=== PATIENT | female | born 1995 | race Hispanic/Latino ===

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

== ENCOUNTER 2017-01-21 01:05 | Inpatient (IN) | payer MEDICAID, OTHER ==
[2017-01-21 01:32] VITALS: BMI 24.6
[2017-01-21] MEDS ORDERED: Ondansetron HCl/PF 4 MG/2 ML Vial IVP PRN ×2 (02:29→05:24)
[2017-01-21] MEDS ORDERED: Promethazine HCl 25 MG/ML VIAL IM PRN ×2 (02:29→05:24)
[2017-01-21] MEDS ORDERED: Acetaminophen 500 MG TAB PO PRN (02:29)
[2017-01-21] MEDS ORDERED: Lactated Ringer's 1,000 ML IV SCH (02:30)
[2017-01-21] MEDS ORDERED: Carboprost 250 MCG/ML AMP IM PRN (02:33)
[2017-01-21] MEDS ORDERED: LR / Pitocin 40 units/1000 ml 1,000 ML IV PRN (02:33)
[2017-01-21] MEDS ORDERED: Misoprostol 200 MCG TAB PR PRN (02:33)
[2017-01-21] MEDS ORDERED: Lidocaine 1% (PF) 30 ML VIAL SC PRN (02:33)
[2017-01-21] MEDS ORDERED: Ibuprofen 800 MG TAB PO PRN (02:33)
[2017-01-21 04:22] LABS: Hematocrit 30.3 % (36.0-47.0); Mean Platelet Volume 8.7 fL (7.4-10.4); Red Blood Cell (RBC) Count 3.71 mill/uL (4.00-5.20); White Blood Cell (WBC) Count 10.8 thou/uL (4.8-10.8)
[2017-01-21] MEDS ORDERED: Fentanyl 4 mcg/Marc 0.1% Cadd 100 ML ONE (04:43)
[2017-01-21] MEDS ORDERED: Acetaminophen 325 MG TAB PO PRN (05:24)
[2017-01-21] MEDS ORDERED: diphenhydrAMINE 50 MG/ML VIAL IVP PRN (05:24)
[2017-01-21] MEDS ORDERED: Lactated Ringer's 500 ML IV PRN (05:24)
[2017-01-21] MEDS ORDERED: ePHEDrine/0.9% NaCl/PF SYRINGE 50 mg/10 ml SLOW IVP PRN (05:24)
[2017-01-21] MEDS ORDERED: Eucerin (Mineral Oil/Petrolatum,White) 30 gm Jar TOP PRN (05:24)
[2017-01-21] MEDS ORDERED: Naloxone HCl 0.4 mg/ml Vial IVP PRN ×2 (05:24)
[2017-01-21] MEDS ORDERED: Fentanyl 4mcg/Marcaine 0.1% Cassette 100 ML EPIDURAL SCH (05:30)
[2017-01-21] MEDS ORDERED: Communication Order-Pharmacy FS SCH (05:30)
[2017-01-21] MEDS ORDERED: Calcium Carbonate 500 MG ChewTAB PO PRN (06:36)
[2017-01-21] MEDS ORDERED: LR 500 ML/Oxytocin 10 units 500 ML ONE (06:37)
--- NOTE | 2017-01-21 06:39 | PDOC.LDPN ---
Labor & Delivery Progress Note - Subjective Subjective: comfortable - Objective Vital signs reviewed and normal: yes General: NAD Uterine fundus: atonic Dilation: 6 Effacement: 90% Station: -1 FHT: category 1 [place] contractions every: 13 min Other exam findings: baseline 130's, no decels, mod variability - Assessment (1) Current Visit: Yes Status: Acute Comment: at 39.3 by LMP/13.6 sono here with ctx. 1. Maternal hx: IUGR with last , last Hadlock 37% 2. Labor progression: has stayed the same at 6/90/-1 for two checks, ctx spaced out, will start pitocin for augmentation. Cat 1 strip. Continue routine care for . (2) History of prior with IUGR Code(s): Z87.59 - PERSONAL HISTORY OF COMP OF PREG, CHLDBRTH AND THE PUERP Current Visit: Yes Status: Acute Comment: Last Hadlock 37%. Plan: continue plan of care
[2017-01-21] MEDS ORDERED: LR 500 ML/Oxytocin 10 units 500 ML IV SCH (06:45)
--- NOTE | 2017-01-21 08:52 | PDOC.LDPN ---
Labor & Delivery Progress Note - Subjective Subjective: comfortable, vaginal pressure, loss of fluid - Objective Vital signs reviewed and normal: yes General: NAD, breathing through contractions Uterine fundus: non tender SVE: 8:45 Dilation: 7 Effacement: 100% Station: 0 FHT: category 1, variability present [place] contractions every: 5, inconsistent Other exam findings: SROM - Assessment (1) Current Visit: Yes Status: Acute Qualifiers: Weeks of gestation: 39 weeks Qualified Code(s): Z3A.39 - 39 weeks gestation of Comment: at 39.4 by LMP/13.6 sono here with ctx. 1. Maternal hx: IUGR with last , last Hadlock 37% 2. Labor progression: Progressed at current check to 7/100/0 and had SROM. Pitocin @6. Epidural in place. Feeling pressure but pain controlled. Cat 1 strip. -Will continue pitocine. Ctx every 5 minutes but not consistent. May increase pitocin. Continue routine care for . Plan: pitocin for augmentation
[2017-01-21] MEDS ORDERED: Bupivacaine 0.25% HCL 30 ML VIAL ONE (11:11)
[2017-01-21] MEDS ORDERED: Bisacodyl 10 MG SUPP PR PRN (11:58)
[2017-01-21] MEDS ORDERED: Adacel (T-DAP) 0.5 ML VIAL IM ONE (11:58)
[2017-01-21] MEDS ORDERED: Benzocaine/Menthol 20-0.5% 60 ML CAN TOP PRN (11:58)
[2017-01-21] MEDS ORDERED: Milk Of Magnesia 30 ML UDCUP PO PRN (11:58)
[2017-01-21] MEDS ORDERED: Varicella virus, LIVE 0.5 ML VIAL SC ONE (11:58)
[2017-01-21] MEDS ORDERED: diphenhydrAMINE 25 MG CAP PO PRN (11:58)
[2017-01-21] MEDS: Ferrous Sulfate 325 MG TAB PO SCH (17:24)
--- NOTE | 2017-01-21 20:38 | DN-2 ---
DELIVERING PHYSICIAN: 1. Dr. Alberto Rosa. 2. Dr. Chadd Henderson. ATTENDING: Dr. Jazmin Duron. PROCEDURE: Spontaneous vaginal delivery. ANESTHESIA: Epidural. ESTIMATED BLOOD LOSS: 300 mL. PREOPERATIVE DIAGNOSES: 1. Term intrauterine in labor. 2. History of intrauterine growth resection. 3. Anemia of . POSTOPERATIVE DIAGNOSES: 1. Term intrauterine , delivered. 2. Bilateral perilabial first degree laceration, hemostatic. INDICATIONS: A 21-year-old female G2, now P1-0-0-1, presents in active labor. DELIVERY NOTE: This is a 21-year-old female G2, no2 P2-0-0-2 at 39.3 weeks who delivered a viable female at 12:16 on 01/21/2017. Following an uneventful antepartum course, a vigorous female was delivered over an intact perineum in the occipitoanterior position, anterior shoulder and then remainder of the body delivered. No nuchal cord. The terminal meconium was visualized. The head was held down and mouth and nares were bulb suctioned. Cord clamped and cut and cord blood collected. Placenta delivered intact with 3-vessel cord noted. Also, noted placenta with a peripherally inserted cord. Fundal massage was performed and the fundus was firm. The cervix and vagina were inspected and found to have bilateral perilabial hemostatic first degree lacerations, not requiring repair with suture. The infant went to nursery in good condition for routine care. Apgars were 8 and 9 at 1 and 5 minutes respectively. The patient tolerated delivery well and went to after routine recovery care. GIANNA
[2017-01-21] MEDS: Docusate (Surfak) 240 MG CAP PO SCH (21:00)
[2017-01-21] MEDS ORDERED: Lanolin Ointment 7 GM TUBE TOP PRN (22:58)
[2017-01-21 23:32] VITALS: TEMP 98.3
--- NOTE | 2017-01-22 01:05 | PDOC.OPDEL ---
OB Operative/Delivery Note Delivery Dr/Surgeon: Carole/Oliverio Procedure/Post Delivery Dx: spontaneous vaginal delivery Weeks gestation: 39 Anesthesia: epidural - Findings A Sex: female (at 1216 pm) - Additional Findings/Plan Placenta delivered: spontaneous Repaired Obstetrical Laceration: none (sm bilateral labial-hemostatic) Estimated blood loss: 300 ml Compilations/Other Findings: I was present for and supervised Frieda Rosa/Beatriz perform without complication. See their dictation for complete details.
[2017-01-22] MEDS: Docusate (Surfak) 240 MG CAP PO SCH (08:23)
[2017-01-22] MEDS: Ferrous Sulfate 325 MG TAB PO SCH (08:28)
[2017-01-22] MEDS ORDERED: Prenatal Vitamin 1 TAB PO SCH (09:00)
--- NOTE | 2017-01-22 09:18 | PDOC.PP ---
Post Progress Note Post Day #: 1 Subjective: CARIDAD overnight, pt ambulating w/o assist. Pt has voided and endorses flatus. Pt has not yet had a BM. Pain controlled w PO ibuprofen. Lochia is period amount, no clots. PO intake tolerated: yes Flatus: yes Ambulation: yes Vital Signs (12 hours) Temp Pulse Resp 01/22/17 07:50 98.3 F 75 18 01/22/17 04:00 98.3 F 75 18 01/22/17 00:00 98.3 F 82 18 Weight Weight 55.338 kg - Physical Examination General: NAD Cardiovascular: RRR Respiratory: clear to auscultation bilaterally Abdominal: + bowel sounds, lochia (period amount), no distention, appropriately TTP Neurological: no gross focal deficits Psychiatric: A&Ox3, normal affect Result Diagrams: 01/21/17 03:50 Additional Labs: Post Labs Blood Type O POSITIVE 01/21/17 03:50 Hep Bs Antigen Non-Reactive S/CO (NonReactive) 01/21/17 03:50 (1) Vaginal delivery Code(s): O80 - ENCOUNTER FOR FULL-TERM UNCOMPLICATED DELIVERY Status: Acute Comment: Post- day 1, pain controlled on PO medication. Pt ambulating, tolerating PO, voiding, and passing flatus. Minimal lochia. Pt likely d/c later today pending infant bilirubin and routine screening. (2) Anemia Code(s): D64.9 - ANEMIA, UNSPECIFIED Status: Acute Comment: Cont. w/ ferrous sulfate and colace <Alberto Rosa - Last Filed: 01/22/17 09:25> Vital Signs (12 hours) Temp Pulse Resp 01/22/17 07:50 98.3 F 75 18 01/22/17 04:00 98.3 F 75 18 01/22/17 00:00 98.3 F 82 18 Weight Weight 55.338 kg Result Diagrams: 01/21/17 03:50 Additional Labs: Post Labs Blood Type O POSITIVE 01/21/17 03:50 Hep Bs Antigen Non-Reactive S/CO (NonReactive) 01/21/17 03:50 <Jazmin Duron - Last Filed: 01/22/17 09:43> Attending Addendum - Attending Addendum I personally evaluated the patient and discussed the management with Dr. Rosa I agree with the History, Examination, Assessment and Plan documented above with any addition or exceptions noted below. ppd#1 s/p - recovering well. Stable for d/c <Jazmin Duron - Last Filed: 01/22/17 09:43>
[2017-01-22] MEDS ORDERED: Ibuprofen 800 MG TAB PO PRN (09:36)
[2017-01-22 12:09] VITALS: BP 112/64
[2017-01-22] MEDS ORDERED: Docusate 100 MG CAP PO SCH (21:00)
== END 2017-01-22 16:15 | disposition home or self-care (01) | DRG 775 ==
LOC: L&D/OP 01:05 → L&D 03:05 → 3SE 15:39
PROVIDERS: ADMIT Family Medicine; ATTEND Family Medicine
PROC: 10E0XZZ Delivery of Products of Conception, External Approach (ICD-10-PCS; principal; 2017-01-21)
DX: O99.02 Anemia complicating childbirth (principal); D64.9 Anemia, unspecified; Z3A.39 39 weeks gestation of pregnancy; Z37.0 Single live birth; O70.0 First degree perineal laceration during delivery; Z87.59 Personal history of other complications of pregnancy, childbirth and the puerperium
CPT/HCPCS: 51702; 85027; 86780; 87340; 99282; J2001; J2405; J7120; S0020

== ENCOUNTER 2017-12-27 04:11 | Emergency (ER) | payer MEDICAID, SELFPAY ==
[2017-12-27] MEDS ORDERED: Ondansetron PF 4 MG/2 ML Vial ONE (04:46)
[2017-12-27] MEDS ORDERED: Morphine 4 MG/ML VIAL ONE (04:46)
[2017-12-27 05:02] LABS: #Basophils 0.1 thou/uL (0.0-0.2); #Eosinphils 0.1 thou/uL (0.0-0.7); #Lymphocytes 3.3 thou/uL (1.20-3.40); #Monocytes 0.5 thou/uL (0.11-0.59); #Neutrophils 3.1 thou/uL (1.40-6.50); %Basophils 0.9 % (0.0-1.0); %Eosinophils 1.9 % (0.0-10.0); %Lymphocytes 46.4 % (28.0-48.0); %Monocytes 7.5 % (0.0-4.0); %Neutrophils 43.3 % (31.0-61.0); Hemoglobin 14.5 g/dL (12.0-16.0); Mean Corpuscular HGB CONC 32.4 g/dL (32.0-36.0); Mean Corpuscular Hemoglobin 28.5 pg (25.0-35.0); Mean Corpuscular Volume 87.9 fL (78.0-98.0); Platelet Count 263 thou/uL (130-400); RBC Distribution Width 12.2 % (11.5-14.5); White Blood Cell (WBC) Count 7.1 thou/uL (4.8-10.8)
[2017-12-27 05:24] LABS: ALT (SGPT) 11 U/L (8-55); AST (SGOT) 28 U/L (5-34); Albumin 4.6 g/dL (3.5-5.0); Alkaline Phosphatase 64 U/L (40-150); Anion Gap 17 mmol/L (10-20); BUN (Urea Nitrogen) 15 mg/dL (7.0-18.7); Bilirubin, Total 0.6 mg/dL (0.2-1.2); Calc. Creatinine Clearance 0 mL/min (70-130); Calcium 9.5 mg/dL (7.8-10.44); Carbon Dioxide 19 mmol/L (22-29); Chloride 105 mmol/L (98-107); Estimated GFR-MDRD 72; Globulin 3.5 g/dL (2.4-3.5); Glucose 109 mg/dL (70-105); Lipase 22 U/L (8-78); Potassium 4.7 mmol/L (3.5-5.1); Protein, Total 8.1 g/dL (6.0-8.3); Sodium 136 mmol/L (136-145)
[2017-12-27 05:34] LABS: Bilirubin Negative (Negative); Blood, Urine Negative (Negative); Clarity CLEAR (Clear); Glucose, Urine (Dipstick) Negative (Negative); Leukocyte Negative (Negative); Nitrite Negative (Negative); Protein, Urine (Dipstick) Negative (Neg-Trace); Specific Gravity, Urine 1.019 (1.002-1.036); pH, Urine 6.5 (5.0-9.0)
[2017-12-27 05:37] LABS: Pregnancy Test - Urine (BHCG) Negative (Negative); Pregu Control Background? CLEAR/WHITE (CLR/WHITE); Pregu Control Bar Appear? YES (CONTROL BAR); Specific Gravity 1.019 (1.002-1.036)
--- NOTE | 2017-12-27 07:03 | ULT ---
RIGHT UPPER QUADRANT ULTRASOUND: INDICATION: Epigastric tube. Left upper quadrant abdominal pain. FINDINGS: The liver measured 15.2 cm. No focal hepatic lesion is evident. The visualized gallbladder was norm al appearing. No sonographic Israel's sign is reported. Common bile duct measured 2.3 mm. Visualiz ed pancreas is unremarkable. The right kidney measured 8.9 x 3.7 x 3.9 cm. IMPRESSION: No sonographic abnormality within the right upper quadrant. POS: BH
== END 2017-12-27 06:12 | disposition home or self-care (01) ==
LOC: ERS 04:11
DX: R10.11 Right upper quadrant pain (principal)
CPT/HCPCS: 36415; 76705; 80053; 81003; 81025; 83690; 85025; 96374; J2270; J2405

== ENCOUNTER 2019-09-07 19:29 | Day surgery (SDC) | payer OTHER ==
[2019-09-07 20:04] VITALS: BP 102/60; TEMP 98.6; BMI 26.2
[2019-09-07] MEDS ORDERED: hydrALAZINE 20 MG/ML VIAL SLOW IVP PRN (21:19)
--- NOTE | 2019-09-07 21:19 | PDOC.FPRHP ---
- Allergies/Adverse Reactions Allergies Allergy/AdvReac Type Severity Reaction Status Date / Time No Known Allergies Allergy Verified 04/27/19 13:20 - Home Medications Medication Instructions Recorded Confirmed Type Pnv No.95/Ferrous Fum/Folic AC 1 tablet PO DAILY 11/02/16 09/07/19 History [ Tablet] Ferrous Sulfate [Feosol] 325 mg PO BID-WM #60 tab 01/22/17 09/07/19 Rx - History PMHx: PSHx: FHx: Social: - Vital signs BP: [] HR: [] RR: [] Tmax: [] Pox: []% on [] Wt: [] FMR H&P: Upper Level - Plan Date/Time: 09/07/192118 I, [], have evaluated this patient and agree with findings/plan as outlined by general internist resident. Pertinent changes/additions are listed here.
--- NOTE | 2019-09-08 01:36 | PDOC.LDHP ---
Labor and Delivery H&P Chief complaint: contractions, abdominal pain HPI: 23yo @ 37.4 wks JUAN (EDC 09/24/2019) who presents for evaluation of contractions. She states that the contractions started this morning and went away, then in the last hour she was having contractions every 5-6 minutes. Due date: 09/24/19 Allergies/Adverse Reactions: Allergies Allergy/AdvReac Type Severity Reaction Status Date / Time No Known Allergies Allergy Verified 04/27/19 13:20
--- NOTE | 2019-09-08 01:55 | PDOC.FPROB ---
FMR OB H&P: HPI - History of Present Illness Chief Complaint: Contractions Indentification: 23yo History of Present Illness: Ms. Hastings presented for evaluation of contractions. They started this morning and subsided, however in the hour prior to arrival she was having contractions about every 5-6 minutes. She complains of lower back pain. She denies vaginal bleeding, LOF, vaginal discharge, or decreased movement. Primary Care Physician: TIMUR Thornton FMR OB H&P: Current - Care : 3 Para: 2001 Gestational age: 37.4 Due date: 09/24/2019 Course/Complications: Restricted growth, following with MFM. - OB Labs Blood type: O RH: positive Antibody Screen: negative HIV: negative RPR: negative HepBsAg: negative Rubella: immune Gonorrhea: negative Chlamydia: negative 1 hour gtt: Passed 2hr A1c: 5.0 GBS: negative FMR OB H&P: History - Past Medical History PMH: None - OB History OB History: 1st - IUGR - PHARMACY MANAGER History PHARMACY MANAGER History: No history of STIs - Surgical History Sx History: No surgeries - Social History Social History: Denies tobacco, drug, or alcohol use. - Family History Family History: None FMR OB H&P: Medications - Current Home Medications: Medication Instructions Recorded Confirmed Type Pnv No.95/Ferrous Fum/Folic AC 1 tablet PO DAILY 11/02/16 09/07/19 History [ Tablet] Ferrous Sulfate [Feosol] 325 mg PO BID-WM #60 tab 01/22/17 09/07/19 Rx Allergies/Adverse Reactions: Allergies Allergy/AdvReac Type Severity Reaction Status Date / Time No Known Allergies Allergy Verified 04/27/19 13:20 FMR OB H&P: ROS - Review of Systems General: denies: fever/chills, weight/appetite/sleep changes Eyes: denies: eye pain, vision changes, double vision ENT: denies: nasal congestion, rhinorrhea, sore throat Cardiovascular: denies: chest pain, palpitation, edema Respiratory: denies: cough, congestion, shortness of breath Gastrointestinal: denies: abdominal pain, indigestion, bloating, nausea, vomiting, diarrhea, constipation Genitourinary (Female): reports: contractions, vaginal pressure. denies: incontinence, dysuria, vaginal discharge, vaginal pain, vaginal bleeding, vaginal mass/sore Musculoskeletal: denies: pain, stiffness Neurologic: denies: numbness, syncope, seizures Integumentary: denies: itching, rash, lesions Endocrine: denies: cold intolerance, heat intolerance, polydipsia, polyuria Hematologic/Lymphatic: denies: prolonged or excessive bleeding Psychological: denies: depression, anxiety FMR OB H&P: Vital Signs - Maternal Vital signs: Vital Signs - First Documented Temp Pulse Resp BP 98.6 F 102 H 18 102/60 09/07/19 19:57 09/07/19 19:57 09/07/19 19:57 09/07/19 19:57 - Heart Tones Baseline: 140 Variability: moderate Acceleration: present Deceleration: absent Category: category 1 [place] contractions every: Irregular FMR OB H&P: Physical Exam - Physical Exam General: NAD, awake, alert and oriented HEENT: normocephalic and atraumatic, PERRLA, EOMI, MMM, conjunctiva clear, no scleral icterus, grossly normal vision, grossly normal hearing Neck: supple, FROM Chest: non-tender to palpation Heart: RRR, normal S1/S2, no murmurs/rubs/gallops General: CTAB, no respiratory distress, good air movement, no rales/rhonchi, no wheezing, no retractions Abdomen: soft, gravid, non-tender, bowel sound present Musculoskeletal: normal gait and station, pulses present Neurological: sensation to pain,touch and proprioception grossly normal Skin: no rash, good tugor Lymphatic: no unusual bruising or bleeding, no purpura, no petechia Psychiatric: intact recent and remote memory, good judgement and insight - Pelvic Exam Vulva: normal hair distribution, no discharge, no blood SVE: 4/50/-3/posterior/firm FMR OB H&P: A/P - Problem List (1) Anemia Status: Acute Code(s): D64.9 - ANEMIA, UNSPECIFIED Comment: Cont. w/ ferrous sulfate and colace (2) History of prior with IUGR Status: Acute Code(s): Z87.59 - PERSONAL HISTORY OF COMP OF PREG, CHLDBRTH AND THE PUERP Comment: Last Hadlock 37%. (3) Status: Acute Qualifiers: Weeks of gestation: 39 weeks Qualified Code(s): Z3A.39 - 39 weeks gestation of Disposition: Term intrauterine , not in active labor. - Dilated to a 4/50/-3. - Category 1 FHT. - Contractions uncomfortable but not painful. - Discussed options of rechecking in several hours for cervical change or discharge home to continue to labor until she is closer to active labor. The patient preferred to go home. - Discharged home with labor precautions. growth restriction - Following MFM for serial growth scans. - 36wks EFW 2295g/8% - Delivery recommended at 39 weeks. [facility] PGY 2 Discussion: Date/Time: 09/08/19 4680 This H&P was discussed with Dr. Astudillo who agrees with the above documentation and plan. Addendum - Attending - Attending Attestation Date/Time: 09/08/19 4196 I personally evaluated the patient and discussed the management with Dr. Guerrier. I agree with the History, Examination, Assessment and Plan documented above with any addition or exceptions noted below. Patient comfortable. Same exam as 4-5 days ago in clinic. Discussed recheck in 2 hours and she prefers to go home. Lives ~ 1 mile away. Return precautions discussed. Fetus very active audibly on monitor with cat 1 fht's.
== END 2019-09-07 21:25 | disposition home health service (06) ==
LOC: L&D/OP 19:29
PROVIDERS: ATTEND Emergency Medicine
DX: O47.1 False labor at or after 37 completed weeks of gestation (principal); O36.5930 Maternal care for other known or suspected poor fetal growth, third trimester, not applicable or unspecified; O99.013 Anemia complicating pregnancy, third trimester; D64.9 Anemia, unspecified; Z3A.37 37 weeks gestation of pregnancy; Z87.59 Personal history of other complications of pregnancy, childbirth and the puerperium

== ENCOUNTER 2019-09-10 11:55 | Inpatient (IN) | payer OTHER ==
[2019-09-10 13:05] VITALS: BMI 26.2
--- NOTE | 2019-09-10 13:38 | PDOC.FPROB ---
FMR OB H&P: HPI - History of Present Illness Chief Complaint: contractions History of Present Illness: Pt is a 23yo at 38.0 wks by 17wk afshin who presents for evaluation of contractions. She states the contractions began this morning around 0500 and continued to increase in intensity and frequency. At 0900 they were about 6-10 minutes apart. She is feeling pain and cramping across her lower abdomen. She came to hospital on 09/08/19 due to contractions and was found to be 4/50/-3 on cervical exam. At that time she chose to go home rather than wait to get re- checked. C/o nausea since yesterday morning with no emesis. Denies LOF, vaginal bleeding, or decreased movement. Primary Care Physician: Dr. 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 - Surgical History Sx History: none - Family History Family History: no family history of genetic abnormalities FMR OB H&P: Medications - Current Home Medications: Medication Instructions Recorded Confirmed Type Pnv No.95/Ferrous Fum/Folic AC 1 tablet PO DAILY 11/02/16 09/10/19 History [ Tablet] Ferrous Sulfate [Feosol] 325 mg PO BID-WM #60 tab 01/22/17 09/10/19 Rx Allergies/Adverse Reactions: Allergies Allergy/AdvReac Type Severity Reaction Status Date / Time No Known Allergies Allergy Verified 04/27/19 13:20 FMR OB H&P: ROS - Review of Systems General: denies: fever/chills Eyes: denies: vision changes Cardiovascular: denies: chest pain, edema Respiratory: denies: cough, shortness of breath Gastrointestinal: reports: nausea. denies: vomiting, diarrhea Genitourinary (Female): reports: vaginal discharge (described as thick, sticky) , contractions (every 6-10 minutes at home). denies: vaginal pain, vaginal bleeding Neurologic: denies: headache FMR OB H&P: Vital Signs - Maternal Vital signs: Vital Signs - First Documented Temp Pulse Resp BP 98.3 F 81 18 95/59 L 09/10/19 12:48 09/10/19 12:48 09/10/19 12:48 09/10/19 12:48 - Heart Tones Baseline: 135 Variability: moderate Acceleration: present Deceleration: absent Category: category 1 FMR OB H&P: Physical Exam - Physical Exam General: NAD HEENT: normocephalic and atraumatic, grossly normal vision, grossly normal hearing Neck: supple Heart: RRR, normal S1/S2 General: CTAB, no respiratory distress Abdomen: gravid, non-tender Musculoskeletal: FROM in all four extremities Neurological: no focal deficit Psychiatric: normal mood and affect - Pelvic Exam Vulva: normal hair distribution, no blood SVE: 4/50/-3 Membranes: intact FMR OB H&P: A/P Discussion: Date/Time: 09/10/19 1336 Pt is a 23yo at 38.0wks by 17wk afshin who presents with contractions #sIUP - initial cervical exam 4/50/-3. next check 2 hours later was 5/70/-2 - Category 1 FHT: 135/mod/+accels/no decels. - Contractions uncomfortable, denies LOF, vaginal bleeding - pt would like a low intervention labor/: not on continuous monitor as long as FHT's ok when checked, does not want epidural, her mother is acting as her lighting fixtures decorator - serial cervical exams growth restriction - Following MFM for serial growth scans. - MFM report 09/10/19: Hadlock 13%, BPP 8/8, cephalic position, posterior placenta # Anemia of - pt taking iron at home - H/H 11.3/34.1 Diet: NPO Code Status: Full Dispo: Admit to L&D for labor, low intervention labor/, VSS, FHT Cat 1. This H&P was discussed with Dr. Rueda and Dr. Astudillo who agree with the above documentation and plan. Signature: Reva Fenton, PGY1 Addendum - Attending - Attending Attestation Date/Time: 09/11/19 0918 I personally evaluated the patient and discussed the management with Dr. Fenton. I agree with the History, Examination, Assessment and Plan documented above with any addition or exceptions noted below.
[2019-09-10] MEDS ORDERED: Lidocaine 1% (PF) 30 ML VIAL SC PRN (15:10)
[2019-09-10] MEDS ORDERED: hydrALAZINE 20 MG/ML VIAL SLOW IVP PRN (15:10)
[2019-09-10] MEDS ORDERED: Promethazine HCl 25 MG/ML VIAL IM PRN (15:10)
[2019-09-10] MEDS ORDERED: Ondansetron PF 4 MG/2 ML Vial IVP PRN (15:10)
[2019-09-10] MEDS ORDERED: NS / Oxytocin 40 units/1000ml 1,000 ML IV PRN (15:10)
--- NOTE | 2019-09-10 15:14 | PDOC.EVN ---
Event Note - Event Note Event Note: 2hr SVE changed to /-2. Will place admission orders to admit for labor.
[2019-09-10] MEDS ORDERED: NS w/ Oxytocin 10 units 500 ML IV SCH ×2 (15:15)
[2019-09-10 16:32] LABS: Hemoglobin 11.3 g/dL (12.0-16.0); Mean Corpuscular Hemoglobin 28.1 pg (27.0-31.0); Mean Corpuscular Volume 85.2 fL (78.0-98.0); Mean Platelet Volume 9.5 fL (7.4-10.4); Platelet Count 190 thou/uL (130-400); RBC Distribution Width 12.2 % (11.5-14.5); White Blood Cell (WBC) Count 9.6 thou/uL (4.8-10.8)
[2019-09-10 17:12] LABS: HBSAg Index 0.16 S/CO (0-0.99); Hep B Surf Ag Non-Reactive S/CO (NonReactive); Syphilis Antibody Nonreactive (Nonreactive); Syphilis Antibody Index 0.02 S/CO (<1.00 Non-Reactive)
--- NOTE | 2019-09-10 20:46 | PDOC.LDPN ---
Labor & Delivery Progress Note - Subjective Subjective: comfortable, no concerns - Objective Vital signs reviewed and normal: yes General: NAD Uterine fundus: non tender SVE: /-2 Plan: pitocin for augmentation -: Pt is a 23yo at 38.0wks by 17wk afshin who presents with contractions #sIUP - initial cervical exam 50/-3. next check 2 hours later was 70/-2. no change 4 hours later @2000 - Contractions uncomfortable, denies LOF, vaginal bleeding - pt would like a low intervention labor/: does not want epidural, her mother is acting as her disease and insect control boss - serial cervical exams - augment labor with pitocin-discussed with patient that will mean continuous monitors growth restriction - Following MFM for serial growth scans. - MFM report 09/10/19: Hadlock 13%, BPP 8/8, cephalic position, posterior placenta # Anemia of - pt taking iron at home - H/H 11.3/34.1 Diet: NPO Code Status: Full Dispo: Admitted to L&D for labor, low intervention labor/ ATTENDING ADDENDUM: Patient has stalled at /-2. Given her multiparity and that she is close to active labor, I discussed option of d/c home with return later for delivery vs augmentation. She agreed to augmentation. will start pitocin. Offered epidural but does not want at this time. Patient's initial EDC was 09/15/19 by LMP c/w 18.2 wk US but recently updated by MFM to 09/24/19 dated by 17.0 wk US.
[2019-09-10] MEDS: Lactated Ringer's 1,000 ML IV SCH (21:34)
--- NOTE | 2019-09-11 00:13 | PDOC.LDPN ---
Labor & Delivery Progress Note - Subjective Subjective: comfortable - Objective Vital signs reviewed and normal: yes General: NAD Uterine fundus: non tender SVE: /-2 FHT: category 1 [place] contractions every: 2-3 mins Other exam findings: Patient is moving around with the monitors, strips are not constant Plan: continue plan of care -: Pt is a 23yo at 38.0wks by 17wk sono who presented with contractions. She was found to be in labor and admitted. #sIUP - initial cervical exam /-3. next check 2 hours later was /-2. no change 4 hours later @1999 - Pitocin started @ 2141, SVE @0000 /-2 - Contractions uncomfortable, denies LOF, vaginal bleeding - pt would like a low intervention labor/: does not want epidural, her mother is acting as her interstate bus driver - serial cervical exams - augment labor with pitocin-discussed with patient that will mean continuous monitors growth restriction - Following MFM for serial growth scans. - MFM report 09/10/19: Hadlock 13%, BPP 8/8, cephalic position, posterior placenta # Anemia of - pt taking iron at home - H/H 11.3/34.1 Diet: NPO Code Status: Full Dispo: Admitted to L&D for labor, low intervention labor/
[2019-09-11] MEDS ORDERED: Calcium Carbonate 500 MG ChewTAB PO PRN (01:39)
--- NOTE | 2019-09-11 02:38 | PDOC.BPN ---
- Brief Progress Note Patient checked by nurse, SVE was 1. Continue plan. Pt is a 23yo at 38.0wks by 17wk afshin who presented with contractions. She was found to be in labor and admitted. #sIUP - initial cervical exam /-3. next check 2 hours later was /-2. no change 4 hours later @1999 - Pitocin started @ 2141, SVE @0000 /-2, 0230 - Contractions uncomfortable, denies LOF, vaginal bleeding - pt would like a low intervention labor/: does not want epidural, her mother is acting as her glassware selector - serial cervical exams - augment labor with pitocin-discussed with patient that will mean continuous monitors - rupture membranes at next SVE growth restriction - Following MFM for serial growth scans. - MFM report 09/10/19: Hadlock 13%, BPP 8/8, cephalic position, posterior placenta # Anemia of - pt taking iron at home - H/H 11.3/34.1 Diet: NPO Code Status: Full Dispo: Admitted to L&D for labor, low intervention labor/
--- NOTE | 2019-09-11 04:09 | PDOC.BPN ---
- Brief Progress Note AROM attempted @ 0330 but unsuccessful. SVE still Pt is a 23yo at 38.0wks by 17wk afshin who presented with contractions. She was found to be in labor and admitted. #sIUP - initial cervical exam /-3. next check 2 hours later was /-2. no change 4 hours later @1999 - Pitocin started @ 2141, SVE @0000 2, 0230 and 033 - Contractions uncomfortable, denies LOF, vaginal bleeding - pt would like a low intervention labor/: does not want epidural, her mother is acting as her manager power - serial cervical exams - augment labor with pitocin-discussed with patient that will mean continuous monitors - rupture membranes at next SVE growth restriction - Following MFM for serial growth scans. - MFM report 09/10/19: Hadlock 13%, BPP 8/8, cephalic position, posterior placenta # Anemia of - pt taking iron at home - H/H 11.3/34.1 Diet: NPO Code Status: Full Dispo: Admitted to L&D for labor, low intervention labor/
--- NOTE | 2019-09-11 04:46 | PDOC.LDPN ---
Labor & Delivery Progress Note - Subjective Subjective: comfortable - Objective Vital signs reviewed and normal: yes General: NAD, breathing through contractions Uterine fundus: non tender SVE: AROM: clear fluid Plan: continue plan of care -: #sIUP - initial cervical exam /-3. next check 2 hours later was /-2. no change 4 hours later @1999 - Pitocin started @ 2141, SVE @0000 /-2, 0230 and 0330 /1, 0430 - Contractions uncomfortable, denies LOF, vaginal bleeding - AROM @ 0438 w/ clear fluid - pt would like a low intervention labor/: does not want epidural, her mother is acting as her manager shop - serial cervical exams - augment labor with pitocin-discussed with patient that will mean continuous monitors growth restriction - Following MFM for serial growth scans. - MFM report 09/10/19: Hadlock 13%, BPP 8/8, cephalic position, posterior placenta # Anemia of - pt taking iron at home - H/H 11.3/34.1 Diet: NPO Code Status: Full Dispo: Admitted to L&D for labor, low intervention labor/
--- NOTE | 2019-09-11 06:06 | PDOC.OPDEL ---
OB Operative/Delivery Note Delivery Dr/Surgeon: Drs. Simon and Norberto Assist: Attending Dr. Shannon Pre-Delivery Diagnosis: active labor Procedure/Post Delivery Dx: spontaneous vaginal delivery Weeks gestation: 38 (38.1) Anesthesia: none - Additional Findings/Plan Repaired Obstetrical Laceration: none Estimated blood loss: 125 cc Compilations/Other Findings: Delivering Physician Dr. Simon, Dr. Thornton Attending Dr. Shannon Procedure: Spontaneous Vaginal Delivery Anesthesia: none EBL: 125 ml Pre-op Diagnosis: 1. Term intrauterine in labor Post-op Diagnosis: 1. Term intrauterine , delivered Indications: A 23y/o female presented to L&D for active labor Delivery Note: This is 23yo F @ 38.1wks who delivered a viable F infant at 0534. Following an uneventful antepartum course, a vigorous F was delivered over an intact perineum in the occipitoanterior position. Anterior Shoulder and then remainder of the body delivered. There was a nuchal cord that was delivered through then reduced. The head was held down and mouth and nares were bulb suctioned. Cord clamped and cut and cord blood collected. Placenta delivered intact with a 3 vessel cord noted. Fundal massage was performed and the fundus was firm. The cervix and vagina were inspected and found to be free of lacerations. went to nursery in good condition for routine care. Apgars were 7/9 at 1 & 5 minutes, respectively. Patient tolerated delivery well and went to after routine recovery/ care. ATTENDING ADDENDUM: Present for and supervised entire delivery. Agree with above except for the following. Small right vaginal sidewall abrasion that was hemostatic. Post delivery plan: routine recovery
[2019-09-11] MEDS ORDERED: NS / Oxytocin 40 units/1000ml 1,000 ML IV SCH (08:18)
[2019-09-11] MEDS ORDERED: Methylergonovine 0.2 MG/ML VIAL IM PRN (08:18)
[2019-09-11] MEDS ORDERED: Ondansetron PF 4 MG/2 ML Vial IVP PRN (08:18)
[2019-09-11] MEDS ORDERED: Milk Of Magnesia 30 ML UDCUP PO PRN (08:18)
[2019-09-11] MEDS ORDERED: hydrALAZINE 20 MG/ML VIAL SLOW IVP PRN (08:18)
[2019-09-11] MEDS ORDERED: Bisacodyl 10 MG SUPP PR PRN (08:18)
[2019-09-11] MEDS ORDERED: Lanolin Ointment 7 GM TUBE TOP PRN (08:18)
[2019-09-11] MEDS ORDERED: Misoprostol 200 MCG TAB VAG PRN (08:18)
[2019-09-11] MEDS ORDERED: diphenhydrAMINE 25 MG CAP PO PRN (08:18)
[2019-09-11] MEDS ORDERED: Preparation H Ointment 28 GM TUBE PR PRN (08:18)
[2019-09-11] MEDS: HYDROcodone/Acetaminophen 5/325 mg Tablet PO PRN ×3 (09:35→21:46)
[2019-09-11 13:15] LABS: SARS-CoV-2 MS2 Positive; SARS-CoV-2 N Gene Negative; SARS-CoV-2 S Gene Negative; SARS-CoV-2 by NAA Not Detected (NotDetected); SARS-CoV-2 orf1ab Negative
[2019-09-11] MEDS ORDERED: Ibuprofen 800 MG TAB PO SCH (14:00)
[2019-09-11] MEDS: Docusate Calcium (SURFAK) 240 MG CAP PO SCH ×2 (16:44→21:06)
[2019-09-11] MEDS: Prenatal Vitamin 1 TAB PO SCH (16:44)
[2019-09-11] MEDS: Lactated Ringer's 1,000 ML IV SCH (16:46)
[2019-09-11] MEDS: Ibuprofen 800 MG TAB PO SCH ×2 (17:09→23:51)
[2019-09-11] MEDS: Ferrous Sulfate 325 MG TAB PO SCH (17:36)
[2019-09-12] MEDS: Ibuprofen 800 MG TAB PO SCH ×2 (06:07→13:57)
--- NOTE | 2019-09-12 06:44 | PDOC.PP ---
Post Progress Note Post Day #: 1 Subjective: Pt is doing well without complications. Endorsed flatus, good PO intake. She is ambulating without complications. Minimal vaginal bleeding. She wants to go home today. PO intake tolerated: yes Flatus: yes Ambulation: yes Vital Signs (12 hours) Temp Pulse Resp BP BP Pulse Ox 09/12/19 06:05 98.7 F 58 L 16 110/64 98 09/11/19 23:53 97.9 F 68 14 114/68 98 09/11/19 20:54 98.7 F 72 16 110/62 98 Weight Weight 58.967 kg - Physical Examination General: NAD Cardiovascular: no m/r/g, RRR Respiratory: clear to auscultation bilaterally, non-labored breathing Abdominal: + bowel sounds, no distention, appropriately TTP Extremities: negative homans (B) Neurological: no gross focal deficits Psychiatric: A&Ox3, normal affect Result Diagrams: 09/10/19 16:23 Additional Labs: Post Labs Blood Type O POSITIVE 09/10/19 16:23 Hep Bs Antigen Non-Reactive S/CO (NonReactive) 09/10/19 16:23 (1) Anemia Code(s): D64.9 - ANEMIA, UNSPECIFIED Status: Acute Comment: Cont. w/ ferrous sulfate and colace (2) History of prior with IUGR Code(s): Z87.59 - PERSONAL HISTORY OF COMP OF PREG, CHLDBRTH AND THE PUERP Status: Acute Comment: Last [place] 37%. (3) Vaginal delivery Code(s): O80 - ENCOUNTER FOR FULL-TERM UNCOMPLICATED DELIVERY Status: Acute Comment: Post- day 1, pain controlled on PO medication. Pt ambulating, tolerating PO, voiding, and passing flatus. Minimal lochia. Pt likely d/c later today pending bilirubin and routine screening. - Assessment/Plan 23 yo G3 now [id number] who delivered at 38.1 wks without complications who is post- delivery day # 1: # s/p Term Delivery w/o complications - discharge to home - follow up with [facility] to discuss nexplanon vs IUD placement - continue PNV's - monitor for post- blues but low risk - continue - no problems - ibuprofen and tylenol for pain Dispo: discharge to home today Addendum - Attending - Attending Attestation Date/Time: 09/12/19 0735 I personally evaluated the patient and discussed the management with the team. I agree with the History, Examination, Assessment and Plan documented above with any addition or exceptions noted below.
[2019-09-12 08:09] VITALS: BP 118/65; TEMP 98
[2019-09-12] MEDS ORDERED: Adacel (T-DAP) 0.5 ML SYRINGE IM ONE (08:18)
[2019-09-12] MEDS: Ferrous Sulfate 325 MG TAB PO SCH ×2 (08:52→17:26)
[2019-09-12] MEDS: Prenatal Vitamin 1 TAB PO SCH (08:53)
[2019-09-12] MEDS: HYDROcodone/Acetaminophen 5/325 mg Tablet PO PRN (08:53)
[2019-09-12] MEDS: Docusate Calcium (SURFAK) 240 MG CAP PO SCH (08:54)
== END 2019-09-12 18:39 | disposition home or self-care (01) | DRG 807 ==
LOC: L&D/OP 11:55 → L&D-LIB 09-11 00:30 → 3SW 09-11 14:34
PROVIDERS: ADMIT Emergency Medicine; ATTEND Emergency Medicine
PROC: 10E0XZZ Delivery of Products of Conception, External Approach (ICD-10-PCS; principal; 2019-09-11)
DX: O36.5930 Maternal care for other known or suspected poor fetal growth, third trimester, not applicable or unspecified (principal); Z37.0 Single live birth; Z3A.38 38 weeks gestation of pregnancy; O99.02 Anemia complicating childbirth; D64.9 Anemia, unspecified
CPT/HCPCS: 36415; 85027; 86780; 86850; 86900; 86901; 87340; 87635; 99285; J2590; U0003

== ENCOUNTER 2020-11-01 11:27 | Emergency (ER) | payer OTHER, SELFPAY ==
[~2020-11-01 11:27] MED LIST: Iopamidol-370 76% 500 ML 1 ML ONE
[2020-11-01] MEDS ORDERED: Morphine 4 MG/ML VIAL ONE (11:51)
[2020-11-01] MEDS ORDERED: Ketorolac Tromethamine 30 MG/ML VIAL ONE (11:52)
[2020-11-01] MEDS ORDERED: Promethazine HCl 25 MG/ML VIAL ONE ×2 (12:04→16:43)
[2020-11-01 12:30] LABS: Albumin 4.5 g/dL (3.5-5.0)
[2020-11-01 12:31] LABS: Chloride 108 mmol/L (98-107); Potassium 3.8 mmol/L (3.5-5.1); Sodium 139 mmol/L (136-145)
[2020-11-01 12:32] LABS: Calcium 9.3 mg/dL (7.8-10.44)
[2020-11-01 12:33] LABS: Globulin 2.5 g/dL (2.4-3.5); Glucose 110 mg/dL (70-105)
[2020-11-01 12:34] LABS: Anion Gap 12 mmol/L (10-20); Bilirubin, Total 0.5 mg/dL (0.2-1.2); Carbon Dioxide 23 mmol/L (22-29)
[2020-11-01 12:35] LABS: Alkaline Phosphatase 71 U/L (40-110)
[2020-11-01 12:36] LABS: Calc. Creatinine Clearance 0 mL/min (70-130)
[2020-11-01 12:37] LABS: BUN (Urea Nitrogen) 9 mg/dL (7.0-18.7)
[2020-11-01 12:38] LABS: AST (SGOT) 15 U/L (5-34)
[2020-11-01 12:39] LABS: ALT (SGPT) 11 U/L (8-55); Lipase 13 U/L (8-78)
[2020-11-01 12:46] LABS: #Eosinphils 0.2 thou/uL (0.0-0.7); #Lymphocytes 1.4 thou/uL (1.20-3.40); #Monocytes 0.7 thou/uL (0.11-0.59); #Neutrophils 11.6 thou/uL (1.40-6.50); %Basophils 0.3 % (0.0-1.0); %Eosinophils 1.3 % (0.0-10.0); %Monocytes 4.8 % (0.0-10.0); %Neutrophils 83.6 % (42.0-75.0); Band 5 % (5-11); Hemoglobin 14.2 g/dL (12.0-16.0); Lymphocytes 15 % (21-51); MDiff Complete? YES; Mean Corpuscular HGB CONC 32.4 g/dL (32.0-36.0); Mean Corpuscular Hemoglobin 30.7 pg (27.0-31.0); Mean Corpuscular Volume 94.7 fL (78.0-98.0); Mean Platelet Volume 9.5 fL (7.4-10.4); Monocytes 6 % (0-10); Neutrophil 74 % (42-75); Platelet Count 225 thou/uL (130-400); RBC Distribution Width 12.2 % (11.5-14.5); Red Blood Cell (RBC) Count 4.62 mill/uL (4.20-5.40); White Blood Cell (WBC) Count 13.9 thou/uL (4.8-10.8)
[2020-11-01 16:04] LABS: Bacteria/HPF None Seen HPF (None Seen); Bilirubin Negative (Negative); Blood, Urine Trace (Negative); Clarity Clear (Clear); Glucose, Urine (Dipstick) Normal (Negative); Ketone, Urine 60 mg/dL (Negative); Leukocyte Negative Leu/uL (Negative); Nitrite Negative (Negative); Protein, Urine (Dipstick) Negative (Neg-Trace); RBC/HPF 0-3 HPF (0-3); Squamous Epithelial 0-3 HPF (0-3); Urobilinogen Normal mg/dL (Less than 2); WBC/HPF 0-3 HPF (0-3)
[2020-11-01 16:07] LABS: Specific Gravity, Urine 1.057 (1.002-1.036)
[2020-11-01 16:44] LABS: Pregnancy Test - Urine (BHCG) Negative (Negative); Pregu Control Background? CLEAR/WHITE (CLR/WHITE); Pregu Control Bar Appear? YES (CONTROL BAR); Specific Gravity 1.057 (1.002-1.036)
== END 2020-11-01 16:51 | disposition home or self-care (01) ==
LOC: ERS 11:27
DX: N13.2 Hydronephrosis with renal and ureteral calculous obstruction (principal); N83.201 Unspecified ovarian cyst, right side
CPT/HCPCS: 36415; 74177; 76856; 80053; 81003; 81015; 81025; 83690; 84702; 85025; 86850; 86900; 86901; 96374; 96375; J1885; J2270; J2550